=== PATIENT | female | born 1960 | race Caucasian/White ===

== ENCOUNTER 2025-06-08 15:43 | Emergency (ER) | payer OTHER ==
[~2025-06-08] VITALS: Ht 160 cm; Wt 88.6 kg
[2025-06-08 17:10] LABS: BASO # 0.0 10^3/uL (0.0-0.2); BASO % 0.1 % (0.0-1.0); EOS # 0.0 10^3/uL (0.0-0.5); EOS % 0.0 % (0.0-3.0); LYMPH # 1.7 10^3/uL (1.5-5.0); LYMPH % 12.4 % (24.0-44.0); MONO # 0.9 10^3/uL (0.0-0.8); MONO % 7.0 % (2.0-8.0); NEUTROPHILS # 10.7 10^3/uL (1.5-8.5); NEUTROPHILS % 79.2 % (36.0-66.0); PLATELET COUNT, AUTOMATED 203 10^3/uL (150-450)
[2025-06-08 17:23] LABS: ALT/SGPT 22 U/L (7.0-40); AST/SGOT 21 U/L (<34); CALCIUM LEVEL 8.2 MG/DL (8.3-10.6); CARBON DIOXIDE LEVEL 24 MMOL/L (20-31); CHLORIDE LEVEL 99 MMOL/L (98-107); CREATININE FOR GFR 0.69 MG/DL (0.55-1.30); GLOMERULAR FILTRATION RATE > 90.0 (>45); MAGNESIUM LEVEL 1.8 MG/DL (1.8-2.4); POTASSIUM SERUM 3.0 MMOL/L (3.5-5.1); SODIUM LEVEL 136 MMOL/L (136-145)
[2025-06-08 17:25] LABS: FREE T4 1.35 NG/DL (0.89-1.76)
[2025-06-08 17:47] VITALS: TEMP 99.9
[2025-06-08] MEDS: ONDANSETRON 4MG 2ML VIAL IV ONE (17:54)
[2025-06-08] MEDS: NS (Normal Saline) 0.9% 1,000 ML IV ONE (17:54)
[2025-06-08 20:00] VITALS: O2SAT 97
[2025-06-08 20:01] VITALS: BP 165/90
[2025-06-08] MEDS ORDERED: ONDA-282 PO (20:21)
[2025-06-08] MEDS: ONDANSETRON 4MG ORAL DISINTEGRATING TAB PO ONE (20:27)
== END 2025-06-08 20:28 | disposition home or self-care (01) ==
LOC: EDBD 15:43 → M ED 15:43
DX: U07.1 COVID-19 (principal)
CPT/HCPCS: 71045; 80053; 83690; 83735; 84439; 84443; 85025; 93005; 96374; 99284; J2405

== ENCOUNTER → 2025-07-10 | Outpatient (CLI) | payer OTHER ==
[~2025-07-10] MED LIST: ONDA-282 PO
[2025-07-10 14:45] LABS: BASO # 0.1 10^3/uL (0.0-0.2); BASO % 0.7 % (0.0-1.0); EOS # 0.2 10^3/uL (0.0-0.5); EOS % 2.8 % (0.0-3.0); LYMPH # 2.8 10^3/uL (1.5-5.0); LYMPH % 41.2 % (24.0-44.0); MONO # 0.5 10^3/uL (0.0-0.8); MONO % 7.6 % (2.0-8.0); NEUTROPHILS # 3.3 10^3/uL (1.5-8.5); NEUTROPHILS % 47.3 % (36.0-66.0); PLATELET COUNT, AUTOMATED 168 10^3/uL (150-450)
[2025-07-10 14:48] LABS: ALT/SGPT 23 U/L (7.0-40); AST/SGOT 20 U/L (<34); CALCIUM LEVEL 9.0 MG/DL (8.3-10.6); CARBON DIOXIDE LEVEL 27 MMOL/L (20-31); CHLORIDE LEVEL 109 MMOL/L (98-107); CHOLESTEROL LEVEL 233 MG/DL (<200); CHOLESTEROL RISK RATIO 3.92 (<5); CREATININE FOR GFR 0.71 MG/DL (0.55-1.30); GLOMERULAR FILTRATION RATE > 90.0 (>45); LDL CHOLESTEROL 149.1 MG/DL (<100); NON-HDL-C 173.7 MG/DL; POTASSIUM SERUM 4.4 MMOL/L (3.5-5.1); SODIUM LEVEL 145 MMOL/L (136-145); TRIGLYCERIDES LEVEL 123 MG/DL (<150)
[2025-07-10 14:50] LABS: TOTAL 25(OH) VITAMIN D 28.3 NG/ML (20.0-100.0)
[2025-07-10 14:51] LABS: FREE T4 0.88 NG/DL (0.89-1.76)
== END ==
LOC: M LABDRWAD 08:49
DX: Z00.00 Encounter for general adult medical examination without abnormal findings (principal); E55.9 Vitamin D deficiency, unspecified; Z79.899 Other long term (current) drug therapy; J30.2 Other seasonal allergic rhinitis; M25.569 Pain in unspecified knee; R53.83 Other fatigue